=== PATIENT | male | born 1990 | race Caucasian/White ===

== ENCOUNTER 2017-02-13 19:28 | Emergency (ER) | payer MEDICAID ==
[~2017-02-13] VITALS: Ht 172.7 cm; Wt 82.0 kg
[~2017-02-13 19:28] MED LIST: PHEN100C4 PO; RISP1 PO
[2017-02-13] MEDS ORDERED: LORAZEPAM 2MG/ML CPJ IV PRN (20:15)
[2017-02-13 20:29] LABS: BASOPHILS % 1.7 % (0.0-2.0); HEMATOCRIT. 41.1 % (42.0-52.0); HEMOGLOBIN. 13.3 g/dL (14.0-18.0); LYMPHOCYTES % 43.4 % (20.0-50.0); MEAN CORPUSCULAR HGB CONC 32.4 g/dL (31.0-37.0); MEAN CORPUSCULAR VOLUME 86.5 fL (80.0-94.0); MEAN PLATELET VOLUME 9.7 fl (7.4-10.4); MONOCYTES % 7.2 % (2.0-8.0); NEUTROPHILS % 40.7 % (40.0-76.0); PLATELET 166 x1000/uL (130-400); RED BLOOD CELL COUNT 4.75 mill/uL (4.7-6.1); RED CELL DISTRIBUTION WIDTH 15.6 % (11.6-14.6); WHITE BLOOD COUNT 7.4 x1000/uL (4.5-11.0)
[2017-02-13 20:31] LABS: CHLORIDE 107 mEq/L (98-107); INDEX HEMOLYSI 1 (1-3); INDEX ICTERIC 1 (1-4); INDEX LIPEMIC 2 (1-3)
[2017-02-13 20:36] LABS: ALBUMIN 3.3 g/dL (3.4-5.0); ANION GAP 10; CALCIUM 8.4 mg/dL (8.5-10.1); CARBON DIOXIDE 29 mEq/L (21-32); ETHANOL BLOOD < 10 mg/dL; UREA NITROGEN BLOOD 8 mg/dL (7-21)
[2017-02-13 20:38] LABS: ALANINE AMINOTRANSFERASE 18 IU/L (13-61); PHENYTOIN 0.9 ug/mL (10-20); eGFR > 60 mL/min (>60)
[2017-02-13] MEDS ORDERED: PHENYTOIN SODIUM 1,000 MG in SODIUM CHLORIDE 0.9% 100 ML IV ONE (21:15)
[2017-02-13 23:45] VITALS: BP 128/76
== END 2017-02-14 00:26 | disposition home or self-care (01) ==
LOC: ER 19:29
DX: R56.9 Unspecified convulsions (principal); I10 Essential (primary) hypertension; F12.10 Cannabis abuse, uncomplicated; F15.10 Other stimulant abuse, uncomplicated; Z91.14 Patient's other noncompliance with medication regimen; Z98.890 Other specified postprocedural states
CPT/HCPCS: 36415; 80053; 80185; 85025; 96365; 99284; G0482; J1165; Z7610; J7050

== ENCOUNTER 2017-03-02 12:20 | Emergency (ER) | payer MEDICAID ==
[~2017-03-02] VITALS: Ht 172.7 cm; Wt 70.0 kg
[2017-03-02 12:39] VITALS: BP 155/98
== END 2017-03-02 13:07 | disposition home or self-care (01) ==
LOC: ER 12:45
DX: R22.0 Localized swelling, mass and lump, head (principal); R03.0 Elevated blood-pressure reading, without diagnosis of hypertension; F17.210 Nicotine dependence, cigarettes, uncomplicated; F12.10 Cannabis abuse, uncomplicated; F15.10 Other stimulant abuse, uncomplicated; F19.10 Other psychoactive substance abuse, uncomplicated
CPT/HCPCS: 99283

== ENCOUNTER 2017-11-05 18:58 | Emergency (ER) | payer MEDICAID ==
[~2017-11-05] VITALS: Ht 172.7 cm; Wt 75.0 kg
[2017-11-05] MEDS ORDERED: SODIUM CHLORIDE 0.9% 1,000 ML IV ONE ×2 (19:51→21:48)
[2017-11-05] MEDS ORDERED: LORAZEPAM 2MG/ML CPJ IV STA (19:51)
[2017-11-05] MEDS ORDERED: ONDANSETRON HCL 4MG/2ML VIAL IV STA (19:51)
[2017-11-05] MEDS ORDERED: ADENOSINE 6 MG/2ML SYRINGE IV ONE (20:00)
[2017-11-05] MEDS ORDERED: ADENOSINE 3 MG/ML 2ML VIAL IV ONE (20:00)
[2017-11-05 20:25] LABS: BASOPHILS % 0.5 % (0.0-2.0); EOSINOPHILS % 0.1 % (0.0-5.0); HEMATOCRIT. 42.2 % (42.0-52.0); HEMOGLOBIN. 13.5 g/dL (14.0-18.0); LYMPHOCYTES % 12.5 % (20.0-50.0); MEAN CORPUSCULAR HEMOGLOBIN 26.4 pg (28.0-32.0); MEAN CORPUSCULAR VOLUME 82.6 fL (80.0-94.0); MEAN PLATELET VOLUME 9.1 fl (7.4-10.4); MONOCYTES % 7.5 % (2.0-8.0); NEUTROPHILS % 79.4 % (40.0-76.0); PLATELET 278 x1000/uL (130-400); RED BLOOD CELL COUNT 5.11 mill/uL (4.7-6.1); RED CELL DISTRIBUTION WIDTH 15.6 % (11.6-14.6)
[2017-11-05 20:35] LABS: CARBON DIOXIDE 23 mEq/L (21-32); CHLORIDE 97 mEq/L (98-107); ETHANOL BLOOD < 10 mg/dL
[2017-11-05 20:37] LABS: CREATINE KINASE 236 IU/L (39-308)
[2017-11-05 20:50] LABS: TROPONIN I < 0.02 ng/mL (0.00-0.04)
[2017-11-05 21:00] LABS: CLARITY URINE CLEAR (CLEAR); COLOR URINE YELLOW (YELLOW); KETONES URINE TRACE (NEGATIVE); LEUKOCYTE ESTERASE URINE TRACE (NEGATIVE); NITRITE URINE NEGATIVE (NEGATIVE); OCCULT BLOOD URINE NEGATIVE (NEGATIVE); PROTEIN URINE TRACE (NEGATIVE); SPECIFIC GRAVITY URINE 1.024 (1.005-1.030); UROBILINOGEN URINE 0.2 E.U./dL (0.2-1.0)
[2017-11-05 21:11] LABS: *AMPHETAMINES SCREEN URINE PRESUMTIVE POSITIVE (NEGATIVE); *BARBITURATES SCREEN URINE NEGATIVE (NEGATIVE); *BENZODIAZEPINES SCREEN URINE NEGATIVE (NEGATIVE); *COCAINE SCREEN URINE NEGATIVE (NEGATIVE); CANNABINOID URINE SCREEN NEGATIVE (NEGATIVE); METHADONE URINE SCREEN NEGATIVE (NEGATIVE); OPIATES URINE SCREEN NEGATIVE (NEGATIVE); PHENCYCLIDINE URINE SCREEN NEGATIVE (NEGATIVE)
[2017-11-05 21:20] LABS: D-DIMER 0.22 mg/L FEU (<0.50); INR 1.2
[2017-11-05] MEDS ORDERED: LORAZEPAM 2MG/ML CPJ IV ONE (22:00)
[2017-11-06 00:12] VITALS: BP 138/92
== END 2017-11-06 00:26 | disposition home or self-care (01) ==
LOC: ER 19:40
DX: T43.621A Poisoning by amphetamines, accidental (unintentional), initial encounter (principal); D72.829 Elevated white blood cell count, unspecified; R00.2 Palpitations; R00.0 Tachycardia, unspecified; F17.200 Nicotine dependence, unspecified, uncomplicated
CPT/HCPCS: 36415; 71010; 80053; 80305; 81001; 82550; 83880; 84443; 84484; 85025; 85379; 85610; 93005; 96361; 96374; 96375; 96376; 99285; G0482; J0153; J2060; J2405; J7030; Z7610

== ENCOUNTER 2017-11-16 09:17 | Emergency (ER) | payer MEDICAID ==
[~2017-11-16] VITALS: Ht 172.7 cm; Wt 73.0 kg
[2017-11-16] MEDS ORDERED: SODIUM CHLORIDE 0.9% 1,000 ML IV ONE (09:40)
[2017-11-16] MEDS ORDERED: LORAZEPAM 1MG TABLET PO ONE (09:45)
[2017-11-16 09:57] LABS: BASOPHILS % 0.8 % (0.0-2.0); EOSINOPHILS % 8.6 % (0.0-5.0); HEMATOCRIT. 43.3 % (42.0-52.0); HEMOGLOBIN. 14.1 g/dL (14.0-18.0); LYMPHOCYTES % 31.7 % (20.0-50.0); MEAN CORPUSCULAR HEMOGLOBIN 27.1 pg (28.0-32.0); MEAN CORPUSCULAR VOLUME 83.4 fL (80.0-94.0); MEAN PLATELET VOLUME 8.9 fl (7.4-10.4); MONOCYTES % 7.9 % (2.0-8.0); PLATELET 200 x1000/uL (130-400); RED CELL DISTRIBUTION WIDTH 16.2 % (11.6-14.6)
[2017-11-16 10:02] LABS: CHLORIDE 108 mEq/L (98-107)
[2017-11-16 10:03] LABS: PROTHROMBIN TIME 10.3 sec (9.4-11.6)
[2017-11-16 10:12] LABS: CARBON DIOXIDE 29 mEq/L (21-32)
[2017-11-16 10:42] LABS: *AMPHETAMINES SCREEN URINE PRESUMTIVE POSITIVE (NEGATIVE); *BARBITURATES SCREEN URINE NEGATIVE (NEGATIVE); *BENZODIAZEPINES SCREEN URINE NEGATIVE (NEGATIVE); *COCAINE SCREEN URINE PRESUMTIVE POSITIVE (NEGATIVE); CANNABINOID URINE SCREEN PRESUMTIVE POSITIVE (NEGATIVE); METHADONE URINE SCREEN NEGATIVE (NEGATIVE); OPIATES URINE SCREEN NEGATIVE (NEGATIVE); PHENCYCLIDINE URINE SCREEN NEGATIVE (NEGATIVE)
[2017-11-16] MEDS ORDERED: PHENYTOIN SODIUM 1,000 MG in SODIUM CHLORIDE 0.9% 100 ML IV ONE (11:00)
[2017-11-16 12:24] VITALS: BP 138/70
== END 2017-11-16 12:25 | disposition home or self-care (01) ==
LOC: ER 10:35
DX: G40.909 Epilepsy, unspecified, not intractable, without status epilepticus (principal); F15.10 Other stimulant abuse, uncomplicated; F14.90 Cocaine use, unspecified, uncomplicated; F12.10 Cannabis abuse, uncomplicated; F31.9 Bipolar disorder, unspecified; F17.200 Nicotine dependence, unspecified, uncomplicated
CPT/HCPCS: 36415; 80053; 80185; 80305; 85025; 85610; 96361; 96365; 99285; J1165; J7030; J7050

== ENCOUNTER 2019-08-19 21:03 | Emergency (ER) | payer MEDICAID ==
[~2019-08-19] VITALS: Ht 172.7 cm; Wt 91.0 kg
[2019-08-20] MEDS ORDERED: TETANUS, DIPHTHERIA, PERTUSSIS VAC/PF 0.5ML (>7YR OLD) IM ONE
[2019-08-20 00:31] VITALS: BP 151/89
== END 2019-08-20 00:33 | disposition home or self-care (01) ==
LOC: ER 21:03
DX: S61.212A Laceration without foreign body of right middle finger without damage to nail, initial encounter (principal); F31.9 Bipolar disorder, unspecified; R56.9 Unspecified convulsions; F17.200 Nicotine dependence, unspecified, uncomplicated; Z79.899 Other long term (current) drug therapy; Z98.890 Other specified postprocedural states; W45.8XXA Other foreign body or object entering through skin, initial encounter; Y93.89 Activity, other specified; Y92.89 Other specified places as the place of occurrence of the external cause; Y99.8 Other external cause status
CPT/HCPCS: 90471; 90715; 99283; Z7610

== ENCOUNTER 2019-08-25 18:29 | Emergency (ER) | payer MEDICAID ==
[~2019-08-25] VITALS: Ht 172.7 cm; Wt 91.0 kg
[2019-08-25 21:55] VITALS: BP 160/85
== END 2019-08-25 21:55 | disposition home or self-care (01) ==
LOC: ER 18:29
DX: T14.8XXA Other injury of unspecified body region, initial encounter (principal); F17.200 Nicotine dependence, unspecified, uncomplicated; Z98.890 Other specified postprocedural states
CPT/HCPCS: 73140; 99283

== ENCOUNTER 2020-11-07 22:47 | Emergency (ER) | payer OTHER ==
[~2020-11-07] VITALS: Ht 177.8 cm; Wt 80.0 kg
[2020-11-07 22:50] VITALS: BP 144/82
== END 2020-11-08 00:35 | disposition left against medical advice (07) ==
LOC: ER 22:47
DX: R42 Dizziness and giddiness (principal); E11.9 Type 2 diabetes mellitus without complications; Z98.890 Other specified postprocedural states
CPT/HCPCS: 99281